=== PATIENT | male | born 1985 | race Two or more races ===

== ENCOUNTER 2021-09-16 11:56 | Emergency (ER) | payer SELFPAY ==
[~2021-09-16] VITALS: Ht 188 cm; Wt 68.0 kg
[2021-09-16 17:48] VITALS: BP 150/88
== END 2021-09-16 18:11 | disposition home or self-care (01) ==
LOC: ER 11:56
DX: S92.414A Nondisplaced fracture of proximal phalanx of right great toe, initial encounter for closed fracture (principal); S60.221A Contusion of right hand, initial encounter; F17.210 Nicotine dependence, cigarettes, uncomplicated; W22.8XXA Striking against or struck by other objects, initial encounter; Y93.89 Activity, other specified; Y92.89 Other specified places as the place of occurrence of the external cause; Y99.8 Other external cause status
CPT/HCPCS: 73130; 73660

== ENCOUNTER 2021-10-21 15:23 | Emergency (ER) | payer MEDICAID ==
[~2021-10-21] VITALS: Ht 188 cm; Wt 68.0 kg
[2021-10-21 15:29] VITALS: BP 122/86
[2021-10-21] MEDS ORDERED: SODIUM CHLORIDE 0.9% 2,050 ML IV ONE (15:45)
[2021-10-21] MEDS ORDERED: TETANUS-DIPTH-ACEL PERTUSSIS 0.5ML SYR Tdap IM ONE (16:15)
== END 2021-10-21 16:06 | disposition home or self-care (01) ==
LOC: ER 15:23
DX: S61.213A Laceration without foreign body of left middle finger without damage to nail, initial encounter (principal); F17.210 Nicotine dependence, cigarettes, uncomplicated; W26.0XXA Contact with knife, initial encounter; Y93.89 Activity, other specified; Y92.89 Other specified places as the place of occurrence of the external cause; Y99.8 Other external cause status